=== PATIENT | male | born 1950 | race Caucasian/White ===

== ENCOUNTER 2016-12-16 09:57 | Emergency (ER) | payer MEDICARE, OTHER ==
[2015-11-19 09:40] VITALS: BMI 25.1
[~2016-12-16 09:57] MED LIST: BETAPACE 80 MG80 MG PO; COUMADIN10 MG PO; FLOMAX0.4 MG PO; LOVENOX80 MG/0.8 SC; METOPROLOL TART50 MG PO; SYNTHROID150 MCG PO; ZESTRIL40 MG PO
== END 2016-12-16 12:31 | disposition home or self-care (01) ==
LOC: D.ER 09:57
DX: M54.5 Low back pain (principal); M54.16 Radiculopathy, lumbar region; G89.29 Other chronic pain; Z95.0 Presence of cardiac pacemaker

== ENCOUNTER → 2019-05-18 12:10 | Outpatient (CLI) | payer MEDICARE, OTHER ==
[2015-11-19 09:40] VITALS: BMI 25.1
--- NOTE | 2019-05-19 12:49 | EC ---
PATIENT:SEAN STUART DATE OF SERVICE: 05/18/19 SEX: M MEDICAL RECORD: [id number] DATE OF : 54 [facility] AGE OF PATIENT: 68 ADMISSION DATE: 05/18/19 REFERRING PHYSICIAN: INTERPRETING PHYSICIAN: RED FISHMAN MD ECHOCARDIOGRAM REPORT ECHO CHARGES 4 ECHO COMPLETE Date: 05/18/19 CLINICAL DIAGNOSIS: MITRAL/AORTIC REGURG HX MVR, AND PACEMAKER ECHOCARDIOGRAPHIC MEASUREMENTS (adult normal given) AC root (d.<3.7cm) 3.2 cm LV Septum d (<1.2 cm> 1.2 cm Valve Excursion 1.4 cm LV Septum (systole) 1.4 cm Left Atria (s.<4.0cm> 4.5 cm LVPW d(<1.2cm) 1.3 cm RV (d.<2.3cm) 3.6 cm LVPW (sytole) 1.4 cm LV diastole(<5.6CM) 5.4 cm MV E-F(>70mm/sec) cm LV systole 3.6 cm LVOT Diameter 2.1 cm MV exc.(>10mm) cm Est.ejection fraction (50-75%) % DOPPLER: LVIT cm/sec A 110 cm/sec E 71.0 cm/sec LA cm/sec RVSP 32 mmHg LVOT 79 cm/sec AOP1/2T m/s Asc. Ao 86 cm/sec RVOT 39 cm/sec RA cm/sec PA 77 cm/sec AV Gradient Peak 2.94 mmHg AV Mean 1.61 mmHg AV Area 3.0 cm MV Gradient Peak 5.27 mmHg MV Mean 2.14 mmHg MV Area cm COMMENTS: Cyber Security Systems Engineer: Harjinder EVANS Master Pilot: 1 Dr. Fishman TAPE# PACS Pericardial Effusion N DATE OF SERVICE: 05/18/2019 FINDINGS: 1. Left ventricular chamber size is within normal limits. Left ventricular systolic function at the lower limits of normal at 50%. 2. Left atrium is enlarged at 4.5 cm. Right atrium and right ventricular chamber sizes are as well mildly dilated. 3. 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 The remaining valvular structures have normal structure and motion. ECHOCARDIOGRAM REPORT [id number] SEAN STUART 4. Doppler interrogation reveals mild aortic insufficiency, [id number] tricuspid regurgitation, no other valvular insufficiency or stenosis. Pulmonary systolic pressure is estimated at 32 mmHg. 5. No evidence of pericardial effusion or left ventricular thrombus. TRANSINT:[id number] Voice Confirmation ID: [id number] DOCUMENT ID: [id number] RED FISHMAN MD at 1249 CC: [id number] DICTATION DATE: 05/18/19 1512 OIL SEPARATOR: 05/18/19 2200 [facility] CLI 05/18/19 [id number] [place] [address]
== END | disposition home or self-care (01) ==
LOC: D.HCCECHO 12:10
PROVIDERS: ATTEND Internal Medicine Interventional Cardiology
DX: I34.0 Nonrheumatic mitral (valve) insufficiency (principal)